=== PATIENT | male | born 1955 | race Caucasian/White ===

== ENCOUNTER 2017-01-20 13:57 | Day surgery (SDC) | payer BC ==
[~2017-01-20] VITALS: Ht 177.8 cm; Wt 97.4 kg
[2017-01-20] MEDS ORDERED: ZESTRIL 10MG10 MG PO (14:15)
[2017-01-20] MEDS ORDERED: LIPITOR20 MG PO (14:15)
[2017-01-20] MEDS ORDERED: ASPIRIN E.C. 8181 MG PO (14:15)
[2017-01-20] MEDS ORDERED: TASIGNA200 MG PO (14:16)
[2017-01-20 14:31] VITALS: BP 135/71; PULSE 68; TEMP 97.8
[2017-01-20 15:10] VITALS: BP 104/73; PULSE 66; TEMP 98.1
[2017-01-20 15:15] VITALS: BP 100/72; PULSE 61
[2017-01-20 15:30] VITALS: BP 96/71; PULSE 58
[2017-01-20 15:45] VITALS: BP 104/60; PULSE 65
[2017-01-20 16:32] VITALS: BP 107/61; PULSE 54
== END 2017-01-20 15:55 | disposition home or self-care (01) ==
LOC: SDCO 13:57
DX: Z12.11 Encounter for screening for malignant neoplasm of colon (principal); I10 Essential (primary) hypertension; E78.5 Hyperlipidemia, unspecified; Z85.038 Personal history of other malignant neoplasm of large intestine; Z79.899 Other long term (current) drug therapy
CPT/HCPCS: OP; J2250; J3010; J7030